=== PATIENT | male | born 1945 | race Caucasian/White ===

== ENCOUNTER 2023-05-15 10:05 | Emergency (ER) | payer OTHER, SELFPAY ==
[2023-05-15 10:18] VITALS: BP 146/99; PULSE 105; TEMP 36.6; O2SAT 94; BMI 31.2
--- NOTE | 2023-05-15 10:18 | CTR_ITS ---
PROCEDURE INFORMATION: Exam: CT Abdomen And Pelvis With Contrast Exam date and time: 05/15/2023 11:30 AM Age: 77 years old Clinical indication: Abdominal pain; Other: Llq pain; Prior surgery; Surgery date: 6+ months; Surgery type: Kidney TECHNIQUE: Imaging protocol: Computed tomography of the abdomen and pelvis with contrast. Radiation optimization: All CT scans at this facility use at least one of these dose optimization techniques: automated exposure control; mA and/or kV adjustment per patient size (includes targeted exams where dose is matched to clinical indication); or iterative reconstruction. Contrast material: OMNI 350; Contrast volume: 100 ml; Contrast route: INTRAVENOUS (IV); COMPARISON: No relevant prior studies available. RADIATION DOSE METRICS: Total DLP (mGy-cm): 1009.63 FINDINGS: Liver: No acute findings Gallbladder and bile ducts: No acute findings. Pancreas: No ductal dilation. Spleen: No splenomegaly. Adrenal glands: No mass. Kidneys and ureters: 6 mm calculus at the left UVJ axial image 84 with moderate to severe hydroureteronephrosis. Bilateral simple renal cysts and other tiny hypodensities too small to definitively characterize. Stomach and bowel: No obstruction. Appendix: No evidence of appendicitis. Intraperitoneal space: No free air. No significant fluid collection. Vasculature: Somewhat dissected appearance of the abdominal aorta around series 3, image 50 with extensive atherosclerotic plaque/calcification throughout the aorta. No aneurysmal dilation. Lymph nodes: No enlarged lymph nodes. Urinary bladder: Circumferential wall thickening no perivesicular stranding. Reproductive: No acute findings. Bones/joints: No acute findings. Soft tissues: No acute findings. CT/CT abdomen pelvis w con* [id number] IMPRESSION: 6 mm left UVJ calculus with moderate to severe hydroureteronephrosis. Extensive atherosclerotic plaque/calcification throughout the nonaneurysmal abdominal aorta. There is a focal area however that cannot be entirely excluded a small dissection flap. Recommend nonemergent CTA for further evaluation.
--- NOTE | 2023-05-15 10:19 | ED_ITS ---
HPI - Abdominal Pain 2 General: Chief Complaint: Abdominal Pain Stated Complaint: Kidney Problems Time Seen by Provider: 05/15/23 10:13 Source: patient Mode of arrival: ambulatory Limitations: no limitations History of Present Illness: 77-year-old male states has been having left lower quadrant abdominal pain over the last 4 days. States it is worse with movement had some constipation as well denies any dysuria denies any fever denies any vomiting rates his pain a 6 out of 10 currently. Associated Symptoms: Denies chills, diarrhea, fever(s), nausea and vomiting Review of Systems 2 Const: Denies: fever(s), chills, body aches or change in appetite Eyes: Denies: blurry vision or eye discomfort ENMT: Denies: throat pain or dental pain Card: Denies: chest pain Resp: Denies: dyspnea GI: Reports: abdominal pain; Denies: nausea, vomiting or diarrhea Musc: Denies: neck pain or back pain Skin/Breast: Denies: rash Neuro: Denies: headache(s) PFSH ED 2 PFSH: Social History Smoking and tobacco/nicotine status: current every day tobacco/nicotine user Quit status (tobacco/nicotine): considering quitting Physical Exam 2 Const: COMMON NORMALS: no acute distress, patient oriented x3 and healthy appearing HENMT: COMMON NORMALS: normocephalic and atraumatic HEAD & SCALP: n ormocephalic and atraumatic Eye: COMMON NORMALS: Equal, round and reactive pupils present and EOMs intact bilaterally PUPIL: Yes Equal, round and reactive pupils present Neck/C-Spine: COMMON NORMALS: full ROM and supple Chest: COMMONS NORMALS: normal inspection of the chest and normal palpation of entire chest wall Resp: COMMON NORMALS: normal respiratory effort, No retractions, No use of accessory muscles and clear to auscultation bilaterally AUSCULTATION: clear to auscultation bilaterally Cardio: COMMON NORMALS: regular rate, regular rhythm and No murmurs present (Cardio) RATE: regular rate RHYTHM: regular rhythm GI: COMMON NORMALS: Normal to inspection, nondistended, normoactive bowel sounds present, Soft to palpation and no masses PALPATION: Yes Soft to palpation and Yes Tenderness to palpation present (GI) Details: LLQ Extremity: COMMON NORMALS: normal to inspection and full ROM Neuro: COMMON NORMALS: patient oriented x3, moves all extremities and no focal motor deficits Psych: COMMON NORMALS: mental status grossly normal, Normal thought process present and cooperative THOUGHT PROCESS: Normal thought process present Skin: COMMON NORMALS: no rashes or lesions noted and no wounds GENERAL SKIN EXAM: no rashes or lesions noted Course 2 Vital Signs: Vital signs: Vital Signs Temperature 98 F 05/15/23 10:18 Pulse Rate 105 H 05/15/23 10:18 Respiratory Rate 17 05/15/23 10:35 Blood Pressure 146/99 05/15/23 10:18 Pulse Oximetry 92 05/15/23 10:35 Oxygen Delivery Me thod Room Air 05/15/23 10:18 MDM - Abdominal Pain Medical Decision Making Patient presents here with abdominal pain CT shows a kidney stone he has no signs of infection we will start him on pain meds DC him with a strainer he is to follow-up with urology he understands agrees to plan Medical Records I reviewed the patient's medical records. Lab Data I reviewed the patient's lab results. 05/15/23 10:30 05/15/23 10:30 Labs/Radiology: Radiology Impressions Abdomen/Pelvis CT 05/15/23 10:18 IMPRESSION: 6 mm left UVJ calculus with moderate to severe hydroureteronephrosis. Extensive atherosclerotic plaque/calcification throughout the nonaneurysmal abdominal aorta. There is a focal area however that cannot be entirely excluded a small dissection flap. Recommend nonemergent CTA for further evaluation. Laboratory Results WBC 13.13 10^3/uL (3.29-11.43) H 05/15/23 10:30 RBC 4.83 10^6/uL (3.85-5.65) 05/15/23 10:30 Hgb 16.00 g/dL (11.27-16.99) 05/15/23 10:30 Hct 46.6 % (37-53) 05/15/23 10:30 MCV 96.5 fl (82-101) 05/15/23 10:30 MCH 33.1 pg (27-33) H 05/15/23 10:30 MCHC 34.3 g/dL (30-55) 05/15/23 10:30 RDW 12.7 % (12.1-15.1) 05/15/23 10:30 Plt Count 253 10^3/cmm (157-399) 05/15/23 10:30 MPV 9.4 fL (7.4-10.4) 05/15/23 10:30 Neut % (Auto) 81.9 % 05/15/23 10:30 Lymph % (Auto) 9.4 % 05/15/23 10:30 Elk % (Auto) 7.1 % 05/15/23 10:30 Eos % (Auto) 0.5 % 05/15/23 10:30 Baso % (Auto) 0.6 % 05/15/23 10:30 Neut # (Auto) 10.75 10^3/uL (1.8-7.7) H 05/15/23 10:30 Lymph # (Auto) 1.2 10^3/uL (0.8-4.8) 05/15/23 10:30 Elk # (Auto) 0.9 10^3/uL (0.2-0.9) 05/15/23 10:30 Eos # (Auto) 0.1 10^3/uL (0.0-0.8) 05/15/23 10:30 Baso # (Auto) 0.1 10^3/uL (0.0-0.1) 05/15/23 10:30 Nucleated RBC % (auto) 0 % 05/15/23 10:30 Nucleated RBCs # 0.0 /100WBC 05/15/23 10:30 Sodium 138 mmol/L (136-145) 05/15/23 10:30 Potassium 3.9 mmol/L (3.5-5.1) 05/15/23 10:30 Chloride 97 mmol/L (98-107) L 05/15/23 10:30 Carbon Dioxide 20 mmol/L (22-29) L 05/15/23 10:30 Anion Gap 24.9 (5-19) H 05/15/23 10:30 BUN 20 mg/dL (8-23) 05/15/23 10:30 Creatinine 1.1 mg/dL (0.7-1.2) 05/15/23 10:30 GFR Calculation Not Reportable 05/15/23 10:30 Glucose 235 mg/dL (65-115) H 05/15/23 10:30 POC Glucose 191 mg/dL (70-110) H 05/15/23 11:22 Calculated Osmolality 296 mOsm/kg (285-295) H 05/15/23 10:30 Calcium 8.8 mg/dL (8.5-10.5) 05/15/23 10:30 Total Bilirubin 0.4 mg/dL (0.15-1.2) 05/15/23 10:30 AST 12 U/L (0-40) 05/15/23 10:30 ALT 11 U/L (0-41) 05/15/23 10:30 Alkaline Phosphatase 98 U/L (40-130) 05/15/23 10:30 Total Protein 7.4 g/dL (6.6-8.7) 05/15/23 10:30 Albumin 3.5 g/dL (3.5-5.2) 05/15/23 10:30 Globulin 3.9 g/dL (1.3-4.6) 05/15/23 10:30 Lipase 18 U/L (13-60) 05/15/23 10:30 Urine Color Yellow (Yellow) 05/15/23 11:59 Urine Appearance Clear (CLEAR) 05/15/23 11:59 Urine pH 5 (5-7) 05/15/23 11:59 Ur Specific [place] 1.015 (1.005-1.030) 05/15/23 11:59 Urine Protein 3+ (Negative) H 05/15/23 11:59 Urine Glucose (UA) 4+ (Normal) H 05/15/23 11:59 Urine Ketones 2+ (Negative) H 05/15/23 11:59 Urine Blood 2+ (Negative) H 05/15/23 11:59 Urine Nitrate Negative (Negative) 05/15/23 11:59 Urine Bilirubin Neg (Negative) 05/15/23 11:59 Urine Urobilinogen Norm mg/dL (Negative) 05/15/23 11:59 Ur Leukocyte Esterase Negative (Negative) 05/15/23 11:59 Urine RBC 0-4 /hpf (0-2) H 05/15/23 11:59 Urine WBC 0-4 /hpf (0-5) H 05/15/23 11:59 Ur Squamous Epith Cells None /hpf (0-5) 05/15/23 11:59 Amorphous Sediment Trace /hpf 05/15/23 11:59 Urine Bacteria Trace /hpf (NONE) 05/15/23 11:59 Hyaline Casts 0-4 /lpf H 05/15/23 11:59 Fine Granular Casts 0-4 /lpf H 05/15/23 11:59 Urine Mucus Trace /hpf 05/15/23 11:59 All radiology interpretation(s) finalized by discharge Discharge Plan Discharge Patient Disposition: Home Clinical Impression: Kidney stone Condition: Stable Prescriptions: New hydrocodone-acetaminophen 5-325 mg tablet 1 tab PO Q6H PRN (Reason: pain) Qty: 14 0RF ondansetron 4 mg tablet,disintegrating 4 mg PO Q6H PRN (Reason: nausea and vomiting) Qty: 14 0RF No Action pantoprazole 40 mg tablet,delayed release (DR/EC) 40 mg PO DAILY cholecalciferol (vitamin D3) 25 mcg (1,000 unit) capsule 25 mcg PO DAILY amlodipine 10 mg tablet 10 mg PO DAILY glipizide 10 mg tablet 20 mg PO BID pioglitazone 30 mg tablet 30 mg PO DAILY metformin 500 mg tablet extended release 24 hr 1,000 mg PO BID rosuvastatin 40 mg Tablet 40 mg PO QPM Fish Oil 1,000 mg (120 mg-180 mg) Capsule 1 cap PO TID alogliptin 12.5 mg Tablet 25 mg PO DAILY varenicline 1 mg Tablet 1 mg PO BID magnesium 250 mg Tablet 250 mg PO DAILY vitamin P08-galjl acid 0.5-1 mg Tablet 1 tab PO DAILY potassium chloride 20 mEq Tablet Extended Release 20 meq PO EVERY OTHER DAY Discharge Orders: Discharge ED (Routine); Ordered 05/15/23 Ordered By: Justice Funez Referrals: Pee Frank [Family Provider] - Discharge Diet: Advance as tolerated Discharge Activity: Resume usual activity Patient Instructions: Opioid Safety, Pain Management Coding Level of Care Code ED Marine Designer for Whitney Harrison
[2023-05-15] MEDS: ondansetron 2 mg/ML SDV 2 mL 4 MG IVP (10:34)
[2023-05-15] MEDS: sodium chloride 0.9% 1,000 ML 999 ML IV (10:34)
[2023-05-15 10:35] VITALS: RESP 17; O2SAT 92
[2023-05-15] MEDS: morphine 4 mg/mL SDV 1 mL IVP (10:35)
[2023-05-15 10:41] LABS: Basophils # 0.1 10^3/uL (0.0-0.1); Basophils % 0.6 %; Eosinophils # 0.1 10^3/uL (0.0-0.8); Eosinophils % 0.5 %; Hematocrit 46.6 % (37-53); Lymphocytes # 1.2 10^3/uL (0.8-4.8); Lymphocytes % 9.4 %; Mean Corpuscular HGB Conc 34.3 g/dL (30-55); Mean Corpuscular Hemoglobin 33.1 pg (27-33); Mean Corpuscular Volume 96.5 fl (82-101); Mean Platelet Volume 9.4 fL (7.4-10.4); Monocytes # 0.9 10^3/uL (0.2-0.9); Monocytes % 7.1 %; Neutrophils # 10.75 10^3/uL (1.8-7.7); Neutrophils % 81.9 %; Nucleated Red Blood Cells % 0 %; Platelet Count 253 10^3/cmm (157-399); Red Blood Count 4.83 10^6/uL (3.85-5.65); Red Cell Distribution Width 12.7 % (12.1-15.1); White Blood Count 13.13 10^3/uL (3.29-11.43)
[2023-05-15 11:11] LABS: Alanine Aminotransferase 11 U/L (0-41); Albumin Level 3.5 g/dL (3.5-5.2); Alkaline Phosphatase 98 U/L (40-130); Anion Gap 24.9 (5-19); Aspartate Amino Transferase 12 U/L (0-40); Blood Urea Nitrogen 20 mg/dL (8-23); Calcium 8.8 mg/dL (8.5-10.5); Carbon Dioxide 20 mmol/L (22-29); Chloride 97 mmol/L (98-107); Globulin 3.9 g/dL (1.3-4.6); Glucose 235 mg/dL (65-115); Lipase 18 U/L (13-60); Osmolality Calculated 296 mOsm/kg (285-295); Potassium 3.9 mmol/L (3.5-5.1); Sodium 138 mmol/L (136-145); Total Bilirubin 0.4 mg/dL (0.15-1.2); Total Protein 7.4 g/dL (6.6-8.7)
[2023-05-15 11:24] LABS: Glucose Point of Care 191 mg/dL (70-110)
[2023-05-15] MEDS: iohexol 350 mg/mL 500 mL Btl (per mL) IV (11:35)
[2023-05-15 12:25] LABS: Urine Appearance Clear (CLEAR); Urine Color Yellow (Yellow)
[2023-05-15 12:26] LABS: Add Urine Microscopic? YES; Bilirubin Urine Neg (Negative); Blood Urine 2+ (Negative); Glucose Urine UA 4+ (Normal); Ketones Urine 2+ (Negative); Leukocyte Esterase Urine Negative (Negative); Nitrate Urine Negative (Negative); Protein Urine 3+ (Negative); Specific Gravity, Urine 1.015 (1.005-1.030); Urobilinogen Urine Norm (Negative); pH Urine 5 (5-7)
[2023-05-15 12:31] LABS: Add Urine Culture? No; Amorphous Sediment Urine TRACE /hpf; Bacteria Urine TRACE /hpf; Fine Granular Casts Urine 0-4 /lpf; Hyaline Casts Urine 0-4 /lpf; Mucus Urine TRACE /hpf; RBC Urine 0-4 /hpf (0-2); WBC Urine 0-4 /hpf (0-5)
--- NOTE | 2023-05-15 19:01 | DCPLANNER ---
Before discharge patient requested referral to be sent to [facility]. I faxed this patients chart to [facility] on 05/15/23 at [phone]. Fax number of [phone] and [phone].
== END 2023-05-15 12:59 | disposition home or self-care (01) ==
PROVIDERS: Emergency Provider Emergency Medicine
DX: N13.2 Hydronephrosis with renal and ureteral calculous obstruction (principal); Z79.84 Long term (current) use of oral hypoglycemic drugs; Z72.0 Tobacco use
CPT/HCPCS: 36416; 74177; 80053; 81001; 82962; 83690; 85025; 96361; 96374; 96375; 99285; J2270; J2405; J7030; Q9967

== ENCOUNTER 2023-05-21 08:33 | Emergency (ER) | payer OTHER, SELFPAY ==
[2023-05-21 08:41] VITALS: BP 171/86; PULSE 104; RESP 18; TEMP 36.2; O2SAT 97; BMI 31.2
--- NOTE | 2023-05-21 08:47 | W.ED.EXTPRO ---
HPI - Extremity Problem General: Chief complaint: Extremity Injury, Lower Stated complaint: Right leg pain Time Seen by Provider: 05/21/23 08:42 Source: patient Mode of arrival: ambulatory History of Present Illness: 77-year-old male presents emergency room complaining of right lower leg pain moderate swelling. Pain with palpation or with any ambulation. Getting grossly worse over the last couple of days he was recently seated at another facility had a renal stone over 6 mm it did eventually passed spontaneously when he was on follow-up with urology at their clinic. He is not on anticoagulants he denies any history of DVT or PE. Denies chest pain or shortness of breath. MD Complaint: extremity pain Onset (ago): day(s) Pain Consistency: constant Location: right and lower extremity Quality: aching Radiation: distal Relieving factors: elevation and rest Exacerbating factors: weight bearing, walking and palpation Associated symptoms: Deny arthralgias, chest pain, fever(s), myalgias, rash or short of breath Review of Systems Const: Denies: fever(s) or chills Card: Denies: chest pain Resp: Denies: dyspnea GI: Denies: abdominal pain : Denies: dysuria, urinary frequency or urinary urgency Musc: Denies: neck pain or back pain Skin/Breast: Denies: rash PFSH ED PFSH: Social History Smoking and tobacco/nicotine status: current every day tobacco/nicotine user Quit status (tobacco/nicotine): considering quitting Physical Exam Const: COMMON NORMALS: no acute distress GENERAL APPEARANCE: cooperative and comfortable ORIENTATION/CONSCIOUSNESS: Yes awake, Yes oriented to person, Yes oriented to place and Yes oriented to time HENMT: COMMON NORMALS: normocephalic, atraumatic and hearing grossly normal bilaterally HEAD & SCALP: normocephalic and atraumatic Resp: COMMON NORMALS: normal respiratory effort, No retractions, No use of accessory muscles and clear to auscultation bilaterally AUSCULTATION: clear to auscultation bilaterally Cardio: COMMON NORMALS: regular rate, regular rhythm and No murmurs present (Cardio) RATE: regular rate RHYTHM: regular rhythm GI: COMMON NORMALS: Soft to palpation and No hepatosplenomegaly present AUSCULTATION: Yes normoactive bowel sounds PALPATION: Yes Soft to palpation, No Tenderness to palpation present (GI), No Guarding due to palpation present (GI) and Yes No hepatosplenomegaly present Extremity: COMMON NORMALS: normal to inspection, capillary refill normal, no clubbing, cyanosis or edema, no calf tenderness and no pedal edema Neuro: SENSORIUM/ORIENTATION: Yes oriented to person, Yes oriented to place and Yes oriented to time Skin: COMMON NORMALS: no rashes or lesions noted GENERAL SKIN EXAM: no rashes or lesions noted Course Vital Signs: Vital signs: Vital Signs Temperature 97.1 F L 05/21/23 08:41 Pulse Rate 104 H 05/21/23 08:41 Respiratory Rate 18 05/21/23 08:41 Blood Pressure 171/86 05/21/23 08:41 Pulse Oximetry 97 05/21/23 08:41 Oxygen Delivery Me thod Room Air 05/21/23 08:41 MDM - Extremity (Nontraumatic) Medical Decision Making Venous duplex negative for DVT does show superficial thrombophlebitis. Recommend baby aspirin ice elevation moist heat follow-up with primary care return if has further problems. Differential Diagnosis Likely herpes zoster, gout, superficial thrombophlebitis, lower extremity edema and deep vein thrombosis of lower extremity Medical Records I reviewed the patient's medical records. Lab Data I reviewed the patient's lab results. All radiology interpretation(s) finalized by discharge Discharge Plan Discharge Patient Disposition: Home Clinical Impression: Superficial thrombophlebitis Condition: Stable Prescriptions: New aspirin 81 mg tablet,delayed release (DR/EC) 81 mg PO DAILY Qty: 30 0RF No Action pantoprazole 40 mg tablet,delayed release (DR/EC) 40 mg PO DAILY cholecalciferol (vitamin D3) 25 mcg (1,000 unit) capsule 25 mcg PO DAILY amlodipine 10 mg tablet 10 mg PO DAILY glipizide 10 mg tablet 20 mg PO BID pioglitazone 30 mg tablet 30 mg PO DAILY metformin 500 mg tablet extended release 24 hr 1,000 mg PO BID rosuvastatin 40 mg Tablet 40 mg PO QPM Fish Oil 1,000 mg (120 mg-180 mg) Capsule 1 cap PO TID alogliptin 12.5 mg Tablet 25 mg PO DAILY varenicline 1 mg Tablet 1 mg PO BID magnesium 250 mg Tablet 250 mg PO DAILY vitamin T50-xvphj acid 0.5-1 mg Tablet 1 tab PO DAILY potassium chloride 20 mEq Tablet Extended Release 20 meq PO EVERY OTHER DAY hydrocodone-acetaminophen 5-325 mg tablet 1 tab PO Q6H PRN (Reason: pain) Qty: 14 0RF ondansetron 4 mg tablet,disintegrating 4 mg PO Q6H PRN (Reason: nausea and vomiting) Qty: 14 0RF Discharge Orders: Discharge ED (Routine); Ordered 05/21/23 Ordered By: Orlando Erazo Referrals: Faiza Nur MD [Primary Care Provider] - Discharge Diet: Usual diet Discharge Activity: Increase activity as tolerated Patient Instructions: Superficial Thrombophlebitis (ED), Opioid Safety, Pain Management Activity Restrictions/Additional Instructions: Thank you for choosing [facility] for your healthcare needs today. Please realize this is an emergency room and that we are providing you with a medical screening exam and this may not be complete and all inclusive of all the testing and or work up that you may need to determine your ailment or severity of your illness. It is very important that you follow up as instructed or that you return to the Emergency Department should you have concerns or if your condition changes or worsens in any way. Coding Level of Care Code ED Sow Manager for Whitney Harrison
--- NOTE | 2023-05-21 08:55 | USCV_ITS ---
Edmund Strong Age: 77 Gender: M : 1945 Exam Date: 05/21/2023 09:15 Ordering Phys: Orlando Erazo DO Technologist: Fabio Kemp Exam Location: [facility] [place] Indication: rt leg pain and swelling PROCEDURES: Venous duplex imaging was performed in only the right lower extremity. The following venous structures were evaluated: common femoral vein, profunda vein, proximal portion of the greater saphenous vein, superficial femoral vein, and the popliteal vein. FINDINGS: Normal 2-D Doppler and augmentation and compressibility throughout the lower extremity venous structures. Additional imaging through the proximal calf veins also reveals no thrombus. Limited evaluation of the greater saphenous vein show superfical thrombus in the rt gsaph at the ankle. CONCLUSIONS No DVT right lower extremity. There is evidence of acute right lower extremity superficial vein thrombosis at the ankle. Dr. Arabella Villa DO (Electronically Signed) Final Date: 21 May 2023 10:56 S
[2023-05-21 09:54] LABS: Basophils # 0.1 10^3/uL (0.0-0.1); Basophils % 0.9 %; Eosinophils # 0.1 10^3/uL (0.0-0.8); Eosinophils % 0.9 %; Hematocrit 46.3 % (37-53); Lymphocytes # 1.2 10^3/uL (0.8-4.8); Lymphocytes % 12.2 %; Mean Corpuscular HGB Conc 32.6 g/dL (30-55); Mean Corpuscular Volume 101.1 fl (82-101); Mean Platelet Volume 9.4 fL (7.4-10.4); Monocytes # 0.6 10^3/uL (0.2-0.9); Monocytes % 6.3 %; Neutrophils # 7.93 10^3/uL (1.8-7.7); Neutrophils % 78.8 %; Nucleated Red Blood Cells % 0 %; Platelet Count 255 10^3/cmm (157-399); Red Blood Count 4.58 10^6/uL (3.85-5.65); Red Cell Distribution Width 12.7 % (12.1-15.1); White Blood Count 10.06 10^3/uL (3.29-11.43)
[2023-05-21 10:05] LABS: Alanine Aminotransferase 15 U/L (0-41); Alkaline Phosphatase 93 U/L (40-130); Aspartate Amino Transferase 18 U/L (0-40); Blood Urea Nitrogen 14 mg/dL (8-23); Calcium 8.5 mg/dL (8.5-10.5); Carbon Dioxide 24 mmol/L (22-29); Chloride 98 mmol/L (98-107); Creatinine Clr Calc Pharmacy 81.0378; Globulin 3.7 g/dL (1.3-4.6); Glucose 313 mg/dL (65-115); Osmolality Calculated 298 mOsm/kg (285-295); Sodium 138 mmol/L (136-145); Total Bilirubin 0.2 mg/dL (0.15-1.2); Total Protein 6.7 g/dL (6.6-8.7)
[2023-05-21 10:10] LABS: Anion Gap 19.9 (5-19); Potassium 3.9 mmol/L (3.5-5.1)
== END 2023-05-21 09:46 | disposition home or self-care (01) ==
PROVIDERS: Emergency Provider Family Medicine; PCP Family Medicine
DX: I80.01 Phlebitis and thrombophlebitis of superficial vessels of right lower extremity (principal); Z79.84 Long term (current) use of oral hypoglycemic drugs; Z72.0 Tobacco use
CPT/HCPCS: 80053; 85025; 93971; 99284

== ENCOUNTER 2023-05-26 08:50 | Emergency (ER) | payer OTHER, SELFPAY ==
[2023-05-26 09:01] VITALS: BP 112/74; PULSE 106; TEMP 36.8; O2SAT 97; BMI 31.2
--- NOTE | 2023-05-26 09:23 | W.ED.EXTPRO ---
HPI - Extremity Problem General: Chief complaint: Extremity Problem,Nontraumatic Stated complaint: right leg pains Time Seen by Provider: 05/26/23 09:05 Source: patient Mode of arrival: ambulatory Limitations: no limitations History of Present Illness: Patient is a nice 77-year-old male who presents to ED today with complaint of right medial thigh pain that began 1 to 2 days ago. Patient states he was seen here in the ED approximately a week ago after having some pains in his ankle. Ultrasound was ordered which showed a superficial thrombus. Patient was instructed to begin taking an aspirin daily. He states he was doing good until a couple of days ago when he began developing pain to his right medial thigh. He is now noticed a hard red area. He states he was told to come to the ED by the [place]. Patient denies chest pain or shortness of breath. He is not on anticoagulation. MD Complaint: extremity pain Onset (ago): day(s) Pain Consistency: constant Location: right and lower extremity Radiation: none Relieving factors: nothing Exacerbating factors: walking Associated symptoms: Reports no associated symptoms; Deny chest pain or fever(s) Context: other (recent hx of superficial thrombus) Review of Systems Const: Denies: fever(s), chills, body aches, fatigue or malaise Card: Denies: chest pain Resp: Denies: dyspnea Musc: Reports: extremity pain; Denies: neck pain, back pain, extremity swelling, joint pain, joint swelling, joint redness, joint warmth, limited range of motion, muscle cramps or muscle weakness Skin/Breast: Reports: other (lesion to R medial thigh; red and hard ) Neuro: Denies: numbness in extremities, weakness in extremities or sensory changes [facility] ED PFSH: Social History Smoking and tobacco/nicotine status: current every day tobacco/nicotine user Quit status (tobacco/nicotine): considering quitting Physical Exam Const: COMMON NORMALS: no acute distress, average body habitus, patient oriented x3, no limitations, healthy appearing, alert and well nourished GENERAL APPEARANCE: cooperative ORIENTATION/CONSCIOUSNESS: Yes awake, Yes oriented to person, Yes oriented to place and Yes oriented to time HENMT: COMMON NORMALS: normocephalic and atraumatic HEAD & SCALP: normal to inspection, normocephalic and atraumatic Chest: COMMONS NORMALS: normal inspection of the chest Resp: COMMON NORMALS: normal respiratory effort and clear to auscultation bilaterally AUSCULTATION: clear to auscultation bilaterally Cardio: COMMON NORMALS: regular rate and regular rhythm RATE: regular rate RHYTHM: regular rhythm Extremity: COMMON NORMALS: full ROM, capillary refill normal, no joint enlargement, no clubbing, cyanosis or edema, no calf tenderness and no pedal edema GENERAL: Yes normal exam except as noted RIGHT LOWER EXTREMITY: Yes upper leg EXTREMITY IMAGE (FRONT): 1. large erythematous palpable cord most consistent with a superficial thrombus/phlebitis; no fluctuance noted Neuro: NIKOLE COMA SCALE: document GCS findings [place] coma scale eye opening: Spontaneous [place] coma scale verbal response: Orientated [place] coma scale motor response: Obey commands Nikole coma scale total score: 15 COMMON NORMALS: patient oriented x3, moves all extremities, no focal motor deficits and no sensory deficits noted SENSORIUM/ORIENTATION: Yes alert, Yes oriented to person, Yes oriented to place and Yes oriented to time Course Vital Signs: Vital signs: Vital Signs Temperature 98.2 F 05/26/23 09:01 Pulse Rate 106 H 05/26/23 09:01 Blood Pressure 112/74 05/26/23 09:01 Pulse Oximetry 97 05/26/23 09:01 Oxygen Delivery Me thod Room Air 05/26/23 09:01 MDM - Extremity (Nontraumatic) Medical Decision Making Clinical concern for a superficial thrombophlebitis. Given location of symptoms ultrasound was ordered to evaluate for thrombus in the GSV as per guidelines, if this is close to the SPJ or the SFJ or if thombus is >5cm he would need anticoagulation. Fortunately US just showed phlebitis in tributary vein/varicosity. He will be discharged with recommendations for ice/heat and OTC analgesics for pain. [facility] Medical Records I reviewed the patient's medical records. All radiology interpretation(s) finalized by discharge Discharge Plan Discharge Patient Disposition: Home Clinical Impression: Phlebitis of superficial vein of right lower extremity Condition: Stable Prescriptions: No Action pantoprazole 40 mg tablet,delayed release (DR/EC) 40 mg PO DAILY cholecalciferol (vitamin D3) 25 mcg (1,000 unit) capsule 25 mcg PO DAILY amlodipine 10 mg tablet 10 mg PO DAILY glipizide 10 mg tablet 20 mg PO BID pioglitazone 30 mg tablet 30 mg PO DAILY metformin 500 mg tablet extended release 24 hr 1,000 mg PO BID rosuvastatin 40 mg Tablet 40 mg PO QPM Fish Oil 1,000 mg (120 mg-180 mg) Capsule 1 cap PO TID alogliptin 12.5 mg Tablet 25 mg PO DAILY varenicline 1 mg Tablet 1 mg PO BID magnesium 250 mg Tablet 250 mg PO DAILY vitamin M37-qcspb acid 0.5-1 mg Tablet 1 tab PO DAILY potassium chloride 20 mEq Tablet Extended Release 20 meq PO EVERY OTHER DAY hydrocodone-acetaminophen 5-325 mg tablet 1 tab PO Q6H PRN (Reason: pain) Qty: 14 0RF ondansetron 4 mg tablet,disintegrating 4 mg PO Q6H PRN (Reason: nausea and vomiting) Qty: 14 0RF aspirin 81 mg tablet,delayed release (DR/EC) 81 mg PO DAILY Qty: 30 0RF Discharge Orders: Discharge ED (Routine); Ordered 05/26/23 Ordered By: Gina Guerra Referrals: Faiza Nur MD [Primary Care Provider] - Patient Instructions: Phlebitis (ED) Activity Restrictions/Additional Instructions: As we discussed I would like you to alternate ice and heat to the area of discomfort. You may also take [id number] anti-inflammatories and Tylenol to help with discomfort. [facility] for [facility]uation. Coding Level of Care Code ED Integrated Circuit Fabricator for Whitney Harrison
--- NOTE | 2023-05-26 09:33 | USCV_ITS ---
Edmund Strong Age: 77 Gender: M : 1945 Exam Date: 05/26/2023 09:59 Ordering Phys: Gina Guerra Technologist: CT [place] [facility] [place]: rt leg pain PROCEDURES: Venous duplex imaging was performed in only the right lower extremity. In addition, the posterior tibial and peroneal trunk were evaluated. FINDINGS: Normal 2-D Doppler and augmentation and compressibility throughout the lower extremity venous structures. Additional imaging through the proximal calf veins also reveals no thrombus. Limited evaluation of the greater saphenous vein is patent with no thrombus. Focal thrombus seen in superficial varicosities right thigh. CONCLUSIONS No DVT right lower extremity. Dr. Arabella Villa DO (Electronically Signed) Final Date: 26 May 2023 10:23 Amended: 26 May 2023 11:21 C
--- NOTE | 2023-05-26 09:57 | PC.PHAR ---
[facility] 9:57 AM 05/26/23
[2023-05-26 11:00] VITALS: BP 139/91; PULSE 65; O2SAT 97
== END 2023-05-26 11:00 | disposition home or self-care (01) ==
PROVIDERS: Emergency Provider Physician Assistant; PCP Family Medicine
DX: I80.01 Phlebitis and thrombophlebitis of superficial vessels of right lower extremity (principal); Z79.84 Long term (current) use of oral hypoglycemic drugs; Z79.82 Long term (current) use of aspirin; Z72.0 Tobacco use
CPT/HCPCS: 93971; 99284